=== PATIENT | male | born 1945 | race Asian ===

== ENCOUNTER 2016-12-04 09:46 | Emergency (ER) | payer OTHER ==
[~2016-12-04] VITALS: Ht 162.6 cm; Wt 59.0 kg
[~2016-12-04 09:46] MED LIST: ALBU8.5H3 IH; AZIT250T6 PO; DILT120C3 PO; DOCU-119 PO; ESCI10TA PO; IPRAHFA IH; MONT10TA21 PO; OMEP20 PO; PRED10TA3 PO
[2016-12-04] MEDS ORDERED: MOME13HF IH (09:56)
[2016-12-04] MEDS ORDERED: ALEN70TA48 PO (09:56)
[2016-12-04] MEDS ORDERED: LOSA50TA37 PO (09:56)
[2016-12-04] MEDS ORDERED: CHL25 PO (09:56)
[2016-12-04] MEDS ORDERED: ALBUTEROL SULFATE 5 MG/ML 20 ML NEB SOLN [BULK] NEB ONE (10:45)
[2016-12-04] MEDS ORDERED: DEXAMETHASONE SOD PHOS 4 MG/ML 5 ML VIAL IM ONE (10:45)
[2016-12-04 12:52] VITALS: BP 126/78
== END 2016-12-04 12:52 | disposition home or self-care (01) ==
LOC: EMS 09:49
DX: J45.901 Unspecified asthma with (acute) exacerbation (principal); J06.9 Acute upper respiratory infection, unspecified; J02.8 Acute pharyngitis due to other specified organisms; B97.89 Other viral agents as the cause of diseases classified elsewhere; I10 Essential (primary) hypertension; K21.9 Gastro-esophageal reflux disease without esophagitis
CPT/HCPCS: 71020; 87430; 94640; 96372; 99285; J1100; J7611

== ENCOUNTER 2021-04-14 12:09 | Inpatient (IN) | payer OTHER ==
[~2021-04-14] VITALS: Ht 162.6 cm; Wt 69.8 kg
[~2021-04-14 12:09] MED LIST changes: +ALEN70TA65 PO; -AZIT250T6 PO; +CHL25 PO; -DILT120C3 PO; -DOCU-119 PO; -ESCI10TA PO; -IPRAHFA IH; +LOSA50TA37 PO; +MOME13HF IH; -MONT10TA21 PO; -PRED10TA3 PO
[2021-04-14] MEDS ORDERED: ALBUTEROL SULFATE 5 MG/ML 20 ML NEB SOLN [BULK] NEB ONE (12:55)
[2021-04-14] MEDS ORDERED: MethylPREDNISolone SOD SUCC 125 MG/2 ML VIAL IVP ONE (13:00)
[2021-04-14] MEDS ORDERED: IPRATROPIUM BROMIDE 0.5 MG/2.5 ML NEB SOLUTION NEB ONE (13:00)
[2021-04-14 13:14] LABS: BASOPHILS % (AUTO) 0.7 % (0.0-2.0); EOSINOPHILS % (AUTO) 2.1 % (1.0-6.0); HEMATOCRIT 39.2 % (41-53); HEMOGLOBIN 12.8 g/dL (13.5-17.5); LYMPHOCYTES # (AUTO) 2.3 K/uL (1.0-4.8); LYMPHOCYTES % (AUTO) 21.3 % (22.0-44.0); MEAN CORPUSCULAR HEMOGLOBIN 26.1 pg (26.0-34.0); MEAN CORPUSCULAR HGB CONC 32.7 G/dL (31.0-37.0); MEAN CORPUSCULAR VOLUME 80 fL (80-100); MONOCYTES # (AUTO) 0.9 K/uL (0.1-1.0); NEUTROPHILS # (AUTO) 7.5 K/uL (1.8-7.7); NEUTROPHILS % (AUTO) 67.9 % (40.0-70.0); PLATELET COUNT (AUTO) 294 K/uL (150-450); RED BLOOD CELL COUNT(AUTO) 4.92 MIL/uL (4.50-5.90); RED CELL DISTRIBUTION WIDTH 14.2 % (11.5-14.5)
[2021-04-14 13:22] LABS: ANION GAP 9 mmol/L (8-16); CALCIUM, TOTAL 9.1 mg/dL (8.8-10.5); CARBON DIOXIDE 28 mmol/L (22-29); CHLORIDE 106 mmol/L (98-107); CREATININE 1.08 mg/dL (0.60-1.30); GLOMERULAR FILTR. RATE CALC > 60 mL/min (>60); GLUCOSE,RANDOM 96 mg/dL (70-110); POTASSIUM 3.8 mmol/L (3.5-5.1); SODIUM SERUM 143 mmol/L (136-145); UREA NITROGEN, BLOOD 15 mg/dL (7-18)
[2021-04-14 13:28] LABS: INR 0.9 (0.9-1.1); PROTHROMBIN TIME 9.8 SEC (9.4-11.6)
[2021-04-14 13:34] LABS: COVID AG,FIA SOURCE NASOPHARYNGEAL
[2021-04-14 13:47] LABS: ALANINE AMINOTRANSFERASE 38 U/L (12-78); ALBUMIN 3.1 g/dL (3.4-5.0); ALKALINE PHOSPHATASE 92 U/L (46-116); ASPARTATE AMINOTRANSFERASE 25 U/L (15-37); B-TYPE NATRIURETIC PEPTIDE 93 pg/mL (0-100); BILIRUBIN,TOTAL 0.4 mg/dL (0.1-1.0); CREATINE KINASE, TOTAL ONLY 75 U/L (39-308); PHOSPHORUS 3.3 mg/dL (2.5-4.9); TOTAL PROTEIN, SERUM 7.4 g/dL (6.4-8.2)
[2021-04-14 13:58] LABS: INFLUENZA TYPE A NEGATIVE FOR TYPE A (NEGATIVE); INFLUENZA TYPE B NEGATIVE FOR TYPE B (NEGATIVE)
[2021-04-14] MEDS ORDERED: MORPHINE SULFATE 2 MG/ML SYRINGE IVP PRN (14:30)
[2021-04-14] MEDS ORDERED: ALBUTEROL SULFATE 2.5 MG/0.5 ML NEB SOLUTION NEB PRN (14:30)
[2021-04-14] MEDS ORDERED: ZOLPIDEM TARTRATE 5 MG TABLET PO PRN (14:30)
[2021-04-14] MEDS ORDERED: ONDANSETRON HCL 4 MG/2 ML VIAL IVP PRN (14:30)
[2021-04-14] MEDS ORDERED: IPRATROPIUM BROMIDE 0.5 MG/2.5 ML NEB SOLUTION NEB PRN (14:30)
[2021-04-14] MEDS ORDERED: MAGNESIUM HYDROXIDE SUSPENSION 30 ML UDCUP PO PRN (14:30)
[2021-04-14] MEDS ORDERED: HYDROCODONE/ACETAMINOPHEN 5-325 MG TABLET PO PRN (14:30)
[2021-04-14] MEDS ORDERED: ACETAMINOPHEN 325 MG TABLET PO PRN (14:30)
[2021-04-14] MEDS ORDERED: BISACODYL 10 MG RECTAL RECTAL SUPPOSITORY PR PRN (14:30)
[2021-04-14] MEDS: AZITHROMYCIN 500 MG/NS 250 ML IV SCH (14:55)
[2021-04-14] MEDS: BENZONATATE 100 MG CAPSULE PO SCH ×2 (14:55→23:16)
[2021-04-14] MEDS: CefTRIAXone 1 GM/DEXTROSE 50 ML IV SCH (14:55)
[2021-04-14] MEDS: HEPARIN SODIUM,PORCINE 5,000 UNITS/ML VIAL SQ SCH ×2 (14:55→23:17)
[2021-04-14] MEDS: MethylPREDNISolone SOD SUCC 125 MG/2 ML VIAL IVP SCH ×2 (17:09→23:17)
[2021-04-14 19:57] LABS: APPEARANCE,URINE CLEAR (CLEAR); BILIRUBIN,URINE NEGATIVE (NEGATIVE); GLUCOSE, URINE (UA) NEGATIVE (NEGATIVE); KETONES,URINE NEGATIVE (NEGATIVE); LEUKOCYTE ESTERASE ,URINE NEGATIVE (NEGATIVE); NITRATE,URINE NEGATIVE (NEGATIVE); OCCULT BLOOD,URINE NEGATIVE (NEGATIVE); PH,URINE 6.5 (5.0-8.0); PROTEIN,URINE NEGATIVE (NEGATIVE); UROBILINOGEN,URINE 0.2 mg/dL (<=1.0)
[2021-04-14 21:44] VITALS: BP 145/99
[2021-04-14] MEDS: IPRATROPIUM BROMIDE 0.5 MG/2.5 ML NEB SOLUTION NEB SCH (21:45)
[2021-04-14] MEDS: ALBUTEROL SULFATE 2.5 MG/0.5 ML NEB SOLUTION NEB SCH (21:46)
[2021-04-14] MEDS: GuaiFENesin SR 600 MG ER TABLET PO SCH (23:17)
[2021-04-14] MEDS: DOCUSATE SODIUM 100 MG CAPSULE PO SCH (23:17)
[2021-04-15] MEDS: IPRATROPIUM BROMIDE 0.5 MG/2.5 ML NEB SOLUTION NEB SCH ×4 (02:19→20:00)
[2021-04-15] MEDS: ALBUTEROL SULFATE 2.5 MG/0.5 ML NEB SOLUTION NEB SCH ×4 (02:19→20:00)
[2021-04-15 04:15] VITALS: BP 131/79
[2021-04-15] MEDS: MethylPREDNISolone SOD SUCC 125 MG/2 ML VIAL IVP SCH ×4 (05:36→23:15)
[2021-04-15] MEDS: HEPARIN SODIUM,PORCINE 5,000 UNITS/ML VIAL SQ SCH ×3 (07:56→23:15)
[2021-04-15] MEDS: CHLORTHALIDONE 25 MG TABLET PO SCH (07:57)
[2021-04-15] MEDS: LOSARTAN POTASSIUM 50 MG TABLET PO SCH (07:57)
[2021-04-15] MEDS: PANTOPRAZOLE SODIUM 40 MG DR TABLET PO SCH (07:58)
[2021-04-15] MEDS: GuaiFENesin SR 600 MG ER TABLET PO SCH ×2 (07:58→20:51)
[2021-04-15] MEDS: BENZONATATE 100 MG CAPSULE PO SCH ×3 (07:58→20:51)
[2021-04-15] MEDS: FLUTICASONE/VILANTEROL 200-25 MCG/INH INHALER [14] IH SCH (08:03)
[2021-04-15] MEDS: DOCUSATE SODIUM 100 MG CAPSULE PO SCH ×2 (08:04→20:51)
[2021-04-15 08:25] VITALS: BP 145/96
[2021-04-15 12:00] VITALS: BP 128/64
[2021-04-15] MEDS ORDERED: SODIUM CHLORIDE 0.9% 250 ML IV ONE (15:11)
[2021-04-15] MEDS: CefTRIAXone 1 GM/DEXTROSE 50 ML IV SCH (15:19)
[2021-04-15 16:00] VITALS: BP 131/69
[2021-04-15] MEDS: AZITHROMYCIN 500 MG/NS 250 ML IV SCH (16:40)
[2021-04-15 20:05] VITALS: BP 140/85
[2021-04-16 00:38] VITALS: BP 136/71
[2021-04-16] MEDS: ALBUTEROL SULFATE 2.5 MG/0.5 ML NEB SOLUTION NEB SCH ×3 (02:50→13:48)
[2021-04-16] MEDS: IPRATROPIUM BROMIDE 0.5 MG/2.5 ML NEB SOLUTION NEB SCH ×3 (02:50→13:48)
[2021-04-16 04:12] VITALS: BP 142/88
[2021-04-16] MEDS: MethylPREDNISolone SOD SUCC 125 MG/2 ML VIAL IVP SCH ×2 (06:04→11:45)
[2021-04-16 08:13] VITALS: BP 154/100
[2021-04-16] MEDS: LOSARTAN POTASSIUM 50 MG TABLET PO SCH (08:57)
[2021-04-16] MEDS: BENZONATATE 100 MG CAPSULE PO SCH (08:57)
[2021-04-16] MEDS: DOCUSATE SODIUM 100 MG CAPSULE PO SCH (08:58)
[2021-04-16] MEDS: CHLORTHALIDONE 25 MG TABLET PO SCH (08:58)
[2021-04-16] MEDS: PANTOPRAZOLE SODIUM 40 MG DR TABLET PO SCH (08:58)
[2021-04-16] MEDS: HEPARIN SODIUM,PORCINE 5,000 UNITS/ML VIAL SQ SCH (08:58)
[2021-04-16] MEDS: GuaiFENesin SR 600 MG ER TABLET PO SCH (08:58)
[2021-04-16] MEDS: FLUTICASONE/VILANTEROL 200-25 MCG/INH INHALER [14] IH SCH (11:45)
[2021-04-16 12:11] VITALS: BP 149/98
[2021-04-16] MEDS ORDERED: PRED10 PO (14:01)
[2021-04-16] MEDS ORDERED: PRED20 PO (14:01)
[2021-04-16] MEDS ORDERED: BENZ-70 PO (14:02)
[2021-04-16] MEDS: CefTRIAXone 1 GM/DEXTROSE 50 ML IV SCH (15:00)
== END 2021-04-16 16:14 | disposition home or self-care (01) | DRG 140 ==
LOC: EMS 12:14 → 5N 14:22
PROVIDERS: ADMIT Internal Medicine; ATTEND Internal Medicine
DX: J44.1 Chronic obstructive pulmonary disease with (acute) exacerbation (principal); I10 Essential (primary) hypertension; M81.0 Age-related osteoporosis without current pathological fracture; R09.02 Hypoxemia; Z20.822 Contact with and (suspected) exposure to COVID-19; Z85.3 Personal history of malignant neoplasm of breast; Z79.83 Long term (current) use of bisphosphonates
CPT/HCPCS: 71045; 80053; 81003; 82550; 83735; 83880; 84100; 84484; 85025; 85610; 85730; 87804; 93005; 94640; 94644; 99291; J0456; J0696; J1644; J2930; J7050; Q9967; 36415-L1; 36415-TC; J7611; J7613; U0003

== ENCOUNTER 2021-05-27 08:56 | Emergency (ER) | payer OTHER ==
[~2021-05-27] VITALS: Ht 157.5 cm; Wt 75.0 kg
[~2021-05-27 08:56] MED LIST changes: +BENZ-70 PO; +PRED10 PO; +PRED20 PO
[2021-05-27 09:04] VITALS: BP 155/80
== END 2021-05-27 10:34 | disposition home or self-care (01) ==
LOC: EMS 08:58
DX: R04.0 Epistaxis (principal); I10 Essential (primary) hypertension; Z85.3 Personal history of malignant neoplasm of breast
CPT/HCPCS: 30901; 99284; Z7502

== ENCOUNTER 2021-05-29 10:47 | Emergency (ER) | payer OTHER ==
[~2021-05-29] VITALS: Ht 157.5 cm; Wt 75.0 kg
[2021-05-29 11:10] VITALS: BP 124/71
== END 2021-05-29 12:04 | disposition home or self-care (01) ==
LOC: EMS 10:51
DX: R04.0 Epistaxis (principal); Z48.00 Encounter for change or removal of nonsurgical wound dressing; Z79.899 Other long term (current) drug therapy; I10 Essential (primary) hypertension; J45.909 Unspecified asthma, uncomplicated
CPT/HCPCS: 99281; Z7502

== ENCOUNTER 2024-06-12 12:37 | Emergency (ER) | payer OTHER ==
[~2024-06-12] VITALS: Ht 142.2 cm; Wt 63.6 kg
[~2024-06-12 12:37] MED LIST changes: +BENZ-227 PO; -BENZ-70 PO; +LOSA-382 PO; -LOSA50TA37 PO; -MOME13HF IH; +MOME13HF11 IH; +PRED-554 PO; +PRED-729 PO; -PRED10 PO; -PRED20 PO
[2024-06-12 12:47] VITALS: BP 135/56; TEMP 98.2
[2024-06-12 13:14] LABS: COVID AG,FIA SOURCE NASAL SWAB
[2024-06-12 13:53] LABS: INFLUENZA TYPE A NEGATIVE FOR TYPE A (NEGATIVE); INFLUENZA TYPE B NEGATIVE FOR TYPE B (NEGATIVE); SARS-COV2 (COVID) ANTIGEN,FIA Negative (Negative)
[2024-06-12] MEDS ORDERED: 0.9% SODIUM CHLORIDE 5 ML NEB SOLUTION NEB ONE (15:02)
[2024-06-12] MEDS: IPRATROPIUM BROMIDE 0.5 MG/2.5 ML NEB SOLUTION NEB ONE (15:04)
[2024-06-12] MEDS: ALBUTEROL SULFATE 2.5 MG/0.5 ML NEB SOLUTION NEB ONE (15:05)
[2024-06-12 15:08] VITALS: PULSE 55; RESP 20; O2SAT 96
[2024-06-12 15:21] VITALS: PULSE 58; RESP 20; O2SAT 99
[2024-06-12] MEDS: PredniSONE 20 MG TABLET PO ONE (15:28)
[2024-06-12] MEDS ORDERED: ALBU18HF12 IH (16:20)
[2024-06-12] MEDS ORDERED: PRED-554 PO (16:21)
[2024-06-12] MEDS ORDERED: AZIT250T9 PO (16:22)
== END 2024-06-12 16:40 | disposition home or self-care (01) ==
LOC: EMS 12:42
DX: J44.1 Chronic obstructive pulmonary disease with (acute) exacerbation (principal); I10 Essential (primary) hypertension; Z98.890 Other specified postprocedural states; Z79.51 Long term (current) use of inhaled steroids; Z79.52 Long term (current) use of systemic steroids; Z79.899 Other long term (current) drug therapy; Z85.3 Personal history of malignant neoplasm of breast; Z20.822 Contact with and (suspected) exposure to COVID-19
CPT/HCPCS: 99284; 71045; 87426; 87430; 87804; 94640; J7512; J7613